=== PATIENT | female | born 1965 | race African-American/Black ===

== ENCOUNTER 2017-10-26 07:13 | Emergency (ER) | payer MEDICAID, OTHER ==
[~2017-10-26] VITALS: Ht 170.2 cm; Wt 101.0 kg
[~2017-10-26 07:13] MED LIST: ALBU6.7H INH; AMLO5TAB2 PO; LOSA100T6 PO; METO25TA35 PO; OMEP20TA62 PO; ONDA4TAB7 PO; OXYC5TAB3 PO; UNKNOWN BP MED PO; [UNRECOGNIZED DRUG - REMARK] PO
[2017-10-26] MEDS ORDERED: ONDANSETRON 2MG/ML, 2ML ONE (07:44)
[2017-10-26] MEDS ORDERED: FAMOTIDINE 20 MG/2 ML ONE (07:44)
[2017-10-26 07:55] LABS: BASOPHILS # (AUTO) 0.06 x10^3/uL (0-0.1); BASOPHILS % (AUTO) 1 % (0-1); EOSINOPHILS # (AUTO) 0.05 x10^3/uL (0-0.4); EOSINOPHILS % (AUTO) 0 % (1-7); LYMPHOCYTES # (AUTO) 1.18 x10^3/uL (1-3.4); LYMPHOCYTES % (AUTO) 10 % (22-44); MD NO; MEAN CORPUSCULAR HEMOGLOBIN 28.7 pg (27.0-34.8); MEAN CORPUSCULAR HGB CONC 34.2 g/dL (32.4-35.8); MONOCYTES # (AUTO) 0.91 x10^3/uL (0.2-0.8); MONOCYTES % (AUTO) 8 % (2-9); NEUTROPHILS # (AUTO) 9.14 x10^3/uL (1.8-6.8); NEUTROPHILS % (AUTO) 81 % (42-75); PLATELET COUNT 260 x10^3/uL (130-400); RED BLOOD COUNT 5.45 x10^6/uL (3.82-5.3); RED CELL DISTRIBUTION WIDTH 13.3 % (9.6-15.2)
[2017-10-26 07:57] LABS: MICROSCOPIC AUTO
[2017-10-26 07:58] LABS: CULTURE INDICATED? YES
[2017-10-26] MEDS ORDERED: ACETAMINOPHEN 500 MG TABLET PO ONE (08:00)
[2017-10-26] MEDS ORDERED: ONDANSETRON 2MG/ML, 2ML IVPush ONE (08:00)
[2017-10-26] MEDS ORDERED: SODIUM CHLORIDE 0.9% 1,000ML IVBOLUS ONE (08:00)
[2017-10-26] MEDS ORDERED: FAMOTIDINE 20 MG/2 ML IVP ONE (08:00)
[2017-10-26] MEDS ORDERED: ACETAMINOPHEN 500 MG TABLET ONE (08:01)
[2017-10-26 08:08] LABS: ALANINE AMINOTRANSFERASE 34 U/L (12-78); ALBUMIN 3.5 g/dL (3.4-5.0); ANION GAP 9 mmol/L (5-15); CHLORIDE 106 mmol/L (98-107); CREATININE 0.74 mg/dL (0.55-1.02)
[2017-10-26 08:10] LABS: ALKALINE PHOSPHATASE 160 U/L (45-117); BILIRUBIN,TOTAL 0.5 mg/dL (0.2-1.0); TOTAL PROTEIN 8.7 g/dL (6.4-8.2)
[2017-10-26] MEDS ORDERED: MORPHINE SULFATE 4 MG/ML, 1ML ONE (09:22)
[2017-10-26] MEDS ORDERED: MORPHINE SULFATE 4 MG/ML, 1ML IVPush PRN (09:30)
[2017-10-26 09:55] VITALS: BP 161/88
== END 2017-10-26 09:57 | disposition home or self-care (01) ==
LOC: ED 09:21
DX: N30.00 Acute cystitis without hematuria (principal); B34.9 Viral infection, unspecified; I10 Essential (primary) hypertension; Z90.49 Acquired absence of other specified parts of digestive tract; Z90.710 Acquired absence of both cervix and uterus; F17.210 Nicotine dependence, cigarettes, uncomplicated
CPT/HCPCS: 36415; 80053; 81001; 85025; 87077; 87086; 87147; 96361; 96374; 96375; 99284; J2405; J7030; 87186; S0028

== ENCOUNTER 2019-10-16 04:16 | Emergency (ER) | payer MEDICAID ==
[~2019-10-16] VITALS: Ht 167.6 cm; Wt 88.4 kg
[~2019-10-16 04:16] MED LIST changes: -ALBU6.7H INH; +ALBU6.7H8 INH; +AMLO-150 PO; -AMLO5TAB2 PO; +LOSA100T14 PO; -LOSA100T6 PO
[2019-10-16] MEDS ORDERED: FAMOTIDINE 20 MG/2 ML ONE (04:42)
[2019-10-16] MEDS ORDERED: ONDANSETRON 2MG/ML, 2ML ONE (04:42)
[2019-10-16] MEDS ORDERED: DICYCLOMINE 10 MG/ML, 2ML ONE (04:42)
[2019-10-16] MEDS ORDERED: ONDANSETRON 2MG/ML, 2ML IVPush ONE (05:00)
[2019-10-16] MEDS ORDERED: SODIUM CHLORIDE 0.9% 1,000ML IVBOLUS ONE (05:00)
[2019-10-16] MEDS ORDERED: SODIUM CHLORIDE FLUSH 10ML SYR IVF ONE (05:00)
[2019-10-16] MEDS ORDERED: FAMOTIDINE 20 MG/2 ML IV ONE (05:00)
[2019-10-16] MEDS ORDERED: DICYCLOMINE 10 MG/ML, 2ML IM ONE (05:00)
--- NOTE | 2019-10-16 05:10 | NUR ---
Patient experienced epigastric pain last night after work. She was able to go to sleep for a couple hours but then the pain woke her up. Pain does not radiate. She states it "just hurts" but cannot describe it otherwise. Patient is nauseous and vomited 3x [employer]. Medication administered per dec.
[2019-10-16 05:23] LABS: MICROSCOPIC AUTO
[2019-10-16 05:25] LABS: CULTURE INDICATED? YES
[2019-10-16 05:42] LABS: CHLORIDE 110 mmol/L (98-107)
--- NOTE | 2019-10-16 05:44 | NUR ---
Patient still c/o 8/10 epigastric pain. Patient is still nauseous.
[2019-10-16 05:47] LABS: ALANINE AMINOTRANSFERASE 26 U/L (12-78); ALBUMIN 3.7 g/dL (3.4-5.0); ALKALINE PHOSPHATASE 75 U/L (45-117); ANION GAP 8 mmol/L (5-15); BILIRUBIN,TOTAL 0.3 mg/dL (0.2-1.0); CALCIUM 10.1 mg/dL (8.5-10.1); CREATININE 0.78 mg/dL (0.55-1.02); TOTAL PROTEIN 7.6 g/dL (6.4-8.2)
[2019-10-16] MEDS ORDERED: MAALOX/HYOSCYAMINE/LIDOCAINE 45 ML BTL ONE (05:53)
[2019-10-16] MEDS ORDERED: METOCLOPRAMIDE 5 MG/ML, 2ML ONE (05:53)
[2019-10-16] MEDS ORDERED: METOCLOPRAMIDE 5 MG/ML, 2ML IVPush ONE (06:00)
[2019-10-16] MEDS ORDERED: MAALOX/HYOSCYAMINE/LIDOCAINE 45 ML BTL PO ONE (06:00)
[2019-10-16 06:06] LABS: ACETONE, SERUM Negative (Negative)
--- NOTE | 2019-10-16 06:17 | NUR ---
After patient agreed to a GI cocktail, she then decided she did not want it because she's had it before and "it tastes bad." GI cocktail not administered.
[2019-10-16 06:31] LABS: BASOPHILS # (AUTO) 0.04 x10^3/uL (0-0.1); BASOPHILS % (AUTO) 1 % (0-1); EOSINOPHILS # (AUTO) 0.16 x10^3/uL (0-0.4); EOSINOPHILS % (AUTO) 2 % (1-7); LYMPHOCYTES # (AUTO) 1.85 x10^3/uL (1-3.4); LYMPHOCYTES % (AUTO) 24 % (22-44); MD NO; MEAN CORPUSCULAR HEMOGLOBIN 28.7 pg (27.0-34.8); MEAN PLATELET VOLUME 10.1 fL (7.4-10.4); MONOCYTES # (AUTO) 0.52 x10^3/uL (0.2-0.8); MONOCYTES % (AUTO) 7 % (2-9); NEUTROPHILS # (AUTO) 5.23 x10^3/uL (1.8-6.8); NEUTROPHILS % (AUTO) 67 % (42-75); PLATELET COUNT 246 x10^3/uL (130-400); RED BLOOD COUNT 4.67 x10^6/uL (3.82-5.3); RED CELL DISTRIBUTION WIDTH 13.6 % (9.6-15.2)
[2019-10-16] MEDS ORDERED: MORPHINE SULFATE 4 MG/ML, 1ML ONE (06:38)
[2019-10-16] MEDS ORDERED: PROMETHAZINE 25 MG/ML, 1ML ONE (06:38)
[2019-10-16] MEDS ORDERED: PROMETHAZINE 25 MG/ML, 1ML IM ONE (07:00)
[2019-10-16] MEDS ORDERED: MORPHINE SULFATE 4 MG/ML, 1ML IVPush PRN (07:00)
--- NOTE | 2019-10-16 07:10 | NUR ---
RECEIVED REPORT FROM JOSH. PT RESTING IN BED, PT REPORTS IMPROVEMENT IN PAIN AND NAUSEA. PT UP FOR RECHECK ALL RESULTS ARE BACK.
[2019-10-16 08:00] VITALS: BP 127/84
== END 2019-10-16 08:07 | disposition home or self-care (01) ==
LOC: ED 05:05
DX: N30.00 Acute cystitis without hematuria (principal); E87.6 Hypokalemia; I10 Essential (primary) hypertension; E11.9 Type 2 diabetes mellitus without complications; R11.2 Nausea with vomiting, unspecified; Z90.710 Acquired absence of both cervix and uterus; Z98.890 Other specified postprocedural states
CPT/HCPCS: 36415; 74021; 80053; 81001; 82010; 82800; 83690; 85025; 87086; 93005; 96361; 96372; 96374; 96375; 99284; J0500; J2270; J2405; J2550; J2765; J3490; J7030

== ENCOUNTER 2019-10-30 03:17 | Emergency (ER) | payer MEDICAID ==
[~2019-10-30] VITALS: Ht 167.6 cm; Wt 88.5 kg
--- NOTE | 2019-10-30 03:34 | NUR ---
Patient ambulated steadily into room, changed into hospital gown and laying on side. Provider to bedside for assessment. Awaiting orders.
[2019-10-30 03:55] LABS: BASOPHILS # (AUTO) 0.03 x10^3/uL (0-0.1); BASOPHILS % (AUTO) 0 % (0-1); EOSINOPHILS # (AUTO) 0.17 x10^3/uL (0-0.4); EOSINOPHILS % (AUTO) 2 % (1-7); LYMPHOCYTES # (AUTO) 1.85 x10^3/uL (1-3.4); LYMPHOCYTES % (AUTO) 19 % (22-44); MD NO; MEAN CORPUSCULAR HEMOGLOBIN 28.5 pg (27.0-34.8); MEAN CORPUSCULAR HGB CONC 33.4 g/dL (32.4-35.8); MEAN CORPUSCULAR VOLUME 85.4 fL (80-100); MEAN PLATELET VOLUME 9.3 fL (7.4-10.4); MONOCYTES # (AUTO) 0.65 x10^3/uL (0.2-0.8); MONOCYTES % (AUTO) 7 % (2-9); NEUTROPHILS # (AUTO) 7.15 x10^3/uL (1.8-6.8); NEUTROPHILS % (AUTO) 73 % (42-75); PLATELET COUNT 333 x10^3/uL (130-400); RED BLOOD COUNT 4.76 x10^6/uL (3.82-5.3); RED CELL DISTRIBUTION WIDTH 13.4 % (9.6-15.2)
[2019-10-30 04:00] LABS: MICROSCOPIC AUTO
[2019-10-30] MEDS ORDERED: KETOROLAC 30 MG/1 ML IVPush ONE (04:00)
[2019-10-30] MEDS ORDERED: SODIUM CHLORIDE FLUSH 10ML SYR IVF ONE (04:00)
[2019-10-30] MEDS ORDERED: SODIUM CHLORIDE 0.9% 1,000ML IVBOLUS ONE (04:00)
[2019-10-30] MEDS ORDERED: ONDANSETRON 2MG/ML, 2ML IVPush ONE (04:00)
[2019-10-30 04:01] LABS: CULTURE INDICATED? YES
[2019-10-30] MEDS ORDERED: KETOROLAC 30 MG/1 ML ONE (04:02)
[2019-10-30] MEDS ORDERED: ONDANSETRON 2MG/ML, 2ML ONE (04:02)
[2019-10-30 04:05] LABS: ALANINE AMINOTRANSFERASE 19 U/L (12-78); ALBUMIN 3.7 g/dL (3.4-5.0); ANION GAP 9 mmol/L (5-15); CALCIUM 9.9 mg/dL (8.5-10.1); CHLORIDE 108 mmol/L (98-107); CREATININE 0.62 mg/dL (0.55-1.02)
[2019-10-30 04:07] LABS: ALKALINE PHOSPHATASE 84 U/L (45-117); BILIRUBIN,TOTAL 0.3 mg/dL (0.2-1.0); TOTAL PROTEIN 7.8 g/dL (6.4-8.2)
[2019-10-30] MEDS ORDERED: PROCHLORPERAZINE 5 MG/ML, 2ML ONE (05:12)
--- NOTE | 2019-10-30 05:27 | NUR ---
RN to bedside, patient resting comfortably. Administered additional antinausea medications per provider order. Vital signs updated, improved (see vital signs flowsheet.) Awaiting response to antinausea medication
[2019-10-30] MEDS ORDERED: PROCHLORPERAZINE 5 MG/ML, 2ML IVPush ONE (05:30)
[2019-10-30 06:11] VITALS: BP 135/86
== END 2019-10-30 06:22 | disposition home or self-care (01) ==
LOC: ED 04:44
DX: R10.13 Epigastric pain (principal); R11.2 Nausea with vomiting, unspecified; F17.200 Nicotine dependence, unspecified, uncomplicated; I10 Essential (primary) hypertension; E11.9 Type 2 diabetes mellitus without complications; Z90.49 Acquired absence of other specified parts of digestive tract; Z90.710 Acquired absence of both cervix and uterus
CPT/HCPCS: 36415; 80053; 81001; 83690; 85025; 87086; 96361; 96374; 96375; 99283; J0780; J1885; J2405; J7030

== ENCOUNTER 2020-01-15 15:32 | Emergency (ER) | payer MEDICAID ==
[~2020-01-15] VITALS: Ht 175.3 cm; Wt 87.1 kg
[2020-01-15 15:36] VITALS: BP 150/101
[2020-01-15] MEDS ORDERED: METF500T17 PO (15:49)
[2020-01-15] MEDS ORDERED: KETOROLAC 30 MG/1 ML ONE (16:17)
[2020-01-15] MEDS ORDERED: DIAZEPAM 5 MG TABLET ONE (16:17)
[2020-01-15] MEDS ORDERED: DIAZEPAM 5 MG TABLET PO ONE (16:30)
[2020-01-15] MEDS ORDERED: KETOROLAC 30 MG/1 ML IM ONE (16:30)
--- NOTE | 2020-01-15 16:58 | NUR ---
PT MEDICATED PER EMAR.
[2020-01-15] MEDS ORDERED: ONDANSETRON ODT 4 MG PO ONE (18:00)
[2020-01-15] MEDS ORDERED: OXYcodone/APAP 5/325MG TABLET PO ONE (18:00)
--- NOTE | 2020-01-15 18:15 | NUR ---
PT DECLINED MEDICATIONS (ZOFRAN AND PERCOCET).
== END 2020-01-15 18:09 | disposition home or self-care (01) ==
LOC: ED 16:04
DX: M75.91 Shoulder lesion, unspecified, right shoulder (principal); M25.511 Pain in right shoulder; I10 Essential (primary) hypertension; E11.9 Type 2 diabetes mellitus without complications
CPT/HCPCS: 73030; 93005; 96372; 99283; J1885

== ENCOUNTER 2021-06-10 23:48 | Emergency (ER) | payer MEDICAID ==
[~2021-06-10] VITALS: Ht 167.6 cm; Wt 93.5 kg
[~2021-06-10 23:48] MED LIST changes: +METF500T17 PO; -OXYC5TAB3 PO; +OXYC5TAB98 PO
--- NOTE | 2021-06-10 23:58 | NUR ---
EKG DONE IN TRIAGE.
[2021-06-11 00:22] LABS: BASOPHILS % (AUTO) 1 % (0-1); EOSINOPHILS % (AUTO) 1 % (1-7); LYMPHOCYTES % (AUTO) 25 % (22-44); MEAN CORPUSCULAR HEMOGLOBIN 27.7 pg (27.0-34.8); MEAN CORPUSCULAR HGB CONC 33.2 g/dL (32.4-35.8); MEAN PLATELET VOLUME 8.7 fL (7.4-10.4); MONOCYTES % (AUTO) 6 % (2-9); NEUTROPHILS % (AUTO) 68 % (42-75); PLATELET COUNT 308 x10^3/uL (130-400); RED BLOOD COUNT 4.66 x10^6/uL (3.82-5.3); RED CELL DISTRIBUTION WIDTH 13.6 % (9.6-15.2)
[2021-06-11 00:35] LABS: ALANINE AMINOTRANSFERASE 25 U/L (12-78); ALBUMIN 3.2 g/dL (3.4-5.0); ANION GAP 8 mmol/L (5-15); CALCIUM 9.3 mg/dL (8.5-10.1); CHLORIDE 107 mmol/L (98-107); CREATININE 0.49 mg/dL (0.55-1.02)
[2021-06-11 00:39] LABS: ALKALINE PHOSPHATASE 116 U/L (45-117); BILIRUBIN,TOTAL 0.2 mg/dL (0.2-1.0); TOTAL PROTEIN 7.7 g/dL (6.4-8.2); TROPONIN I 0.038 ng/mL (0.000-0.045)
--- NOTE | 2021-06-11 02:49 | NUR ---
PT PRESENTS TO THE ER FOR ABDOMINAL PAIN, N/V SINCE LAST NIGHT AT 1900
[2021-06-11] MEDS ORDERED: FAMOTIDINE 20 MG/2 ML ONE (03:22)
[2021-06-11] MEDS ORDERED: MAALOX/HYOSCYAMINE/LIDOCAINE 45 ML BTL ONE (03:22)
[2021-06-11] MEDS ORDERED: ONDANSETRON 2MG/ML, 2ML ONE ×2 (03:22→04:46)
[2021-06-11] MEDS ORDERED: SODIUM CHLORIDE 0.9% 1,000ML IVBOLUS ONE (03:30)
[2021-06-11] MEDS ORDERED: SODIUM CHLORIDE FLUSH 10ML SYR IVF ONE (03:30)
[2021-06-11] MEDS ORDERED: FAMOTIDINE 20 MG/2 ML IVPush ONE (03:30)
[2021-06-11] MEDS ORDERED: ONDANSETRON 2MG/ML, 2ML IVPush ONE ×2 (03:30→05:00)
[2021-06-11] MEDS ORDERED: MAALOX/HYOSCYAMINE/LIDOCAINE 45 ML BTL PO ONE (03:30)
[2021-06-11] MEDS ORDERED: MORPHINE SULFATE 4 MG/ML, 1ML ONE (04:11)
[2021-06-11] MEDS ORDERED: MORPHINE SULFATE 4 MG/ML, 1ML IVPush PRN (04:30)
[2021-06-11] MEDS ORDERED: POTASSIUM CHLORIDE 20 MEQ TAB.ER.PRT PO ONE (04:30)
--- NOTE | 2021-06-11 04:37 | NUR ---
David burnette in [facility] - 06/11/21 at 0442 by [email or web address] PT PUT BACK ON NONREBREATHER, PT REFUSED BIPAP AND CPAP
[2021-06-11] MEDS ORDERED: POTASSIUM CHLORIDE 20 MEQ TAB.ER.PRT ONE (04:45)
[2021-06-11 05:05] VITALS: BP 150/80
== END 2021-06-11 05:07 | disposition home or self-care (01) ==
LOC: ED 23:59
DX: R10.13 Epigastric pain (principal); R11.2 Nausea with vomiting, unspecified; R05 Cough; R06.02 Shortness of breath; I10 Essential (primary) hypertension; E11.9 Type 2 diabetes mellitus without complications; Z90.49 Acquired absence of other specified parts of digestive tract
CPT/HCPCS: 36415; 71045; 80053; 83690; 84484; 85025; 93005; 96361; 96374; 96375; 96376; 99285; J2270; J2405; J7030

== ENCOUNTER 2021-06-11 17:06 | Emergency (ER) | payer MEDICAID ==
[~2021-06-11] VITALS: Ht 167.6 cm; Wt 90.0 kg
--- NOTE | 2021-06-11 18:15 | NUR ---
nurse discharge: Pt ambulatory to room from lobby at this time.
--- NOTE | 2021-06-11 18:19 | NUR ---
THIS IS A 55 YEAR OLD FEMALE WHO C/O OF C/O ABD PAIN, VOMITTING. SEEN HERE FOR SAME LAST NIGHT
--- NOTE | 2021-06-11 18:46 | NUR ---
REPORT TO CHICO HUMPHREYS, PLAN OF CARE DISCUSSED
[2021-06-11] MEDS ORDERED: PROMETHAZINE 25 MG/ML, 1ML ONE (18:51)
[2021-06-11 18:57] LABS: BASOPHILS % (AUTO) 1 % (0-1); EOSINOPHILS % (AUTO) 0 % (1-7); LYMPHOCYTES % (AUTO) 15 % (22-44); MEAN CORPUSCULAR HEMOGLOBIN 28.2 pg (27.0-34.8); MEAN PLATELET VOLUME 8.8 fL (7.4-10.4); MONOCYTES % (AUTO) 7 % (2-9); NEUTROPHILS % (AUTO) 78 % (42-75); PLATELET COUNT 324 x10^3/uL (130-400); RED BLOOD COUNT 4.85 x10^6/uL (3.82-5.3); RED CELL DISTRIBUTION WIDTH 13.9 % (9.6-15.2)
--- NOTE | 2021-06-11 18:57 | NUR ---
PT MEDICATED PER EMAR. PT STATES UNABLE TO URINATE AT THIS TIME.
[2021-06-11] MEDS ORDERED: PROMETHAZINE 25 MG/ML, 1ML IM ONE (19:00)
[2021-06-11 19:02] LABS: ALANINE AMINOTRANSFERASE 25 U/L (12-78); ALBUMIN 3.5 g/dL (3.4-5.0); ANION GAP 8 mmol/L (5-15); CALCIUM 9.8 mg/dL (8.5-10.1); CHLORIDE 111 mmol/L (98-107)
[2021-06-11] MEDS ORDERED: MORPHINE SULFATE 4 MG/ML, 1ML ONE ×2 (19:02→20:12)
[2021-06-11 19:04] LABS: ALKALINE PHOSPHATASE 120 U/L (45-117); BILIRUBIN,TOTAL 0.3 mg/dL (0.2-1.0); TOTAL PROTEIN 8.3 g/dL (6.4-8.2)
[2021-06-11] MEDS: MORPHINE SULFATE 4 MG/ML, 1ML IVPush PRN ×2 (19:10→20:26)
[2021-06-11] MEDS ORDERED: SODIUM CHLORIDE FLUSH 10ML SYR IVF ONE (19:30)
[2021-06-11] MEDS ORDERED: OMNIPAQUE 350 MG/ML, 100ML BOTTLE ONE (19:30)
[2021-06-11] MEDS ORDERED: LACTATED RINGERS 1,000 ML IVBOLUS ONE (19:30)
[2021-06-11] MEDS ORDERED: METRONIDAZOLE PMX 500MG/100ML 100 ML ONE (20:09)
[2021-06-11] MEDS ORDERED: ONDANSETRON 2MG/ML, 2ML ONE (20:12)
--- NOTE | 2021-06-11 20:15 | NUR ---
per pharmacy. unasyn is compatable with LR
--- NOTE | 2021-06-11 20:20 | NUR ---
abx hung, no bc needed. pt states feeling pain and nausea now, medicated per emar, erp aware
[2021-06-11] MEDS ORDERED: ONDANSETRON 2MG/ML, 2ML IVPush ONE (20:30)
[2021-06-11] MEDS ORDERED: METRONIDAZOLE PMX 500MG/100ML 100 ML IV ONE (20:30)
[2021-06-11] MEDS ORDERED: AMPICILLIN/SULBACTAM 3 GM in SODIUM CHLORIDE 0.9% 100 ML IV ONE (20:30)
--- NOTE | 2021-06-11 20:43 | NUR ---
pt sleeping in gurney, abx and LR still running. pt to recieve 1 more iv abx and then d/c. pt agreeable with plan
[2021-06-11 21:50] VITALS: BP 161/79
== END 2021-06-11 22:33 | disposition home or self-care (01) ==
LOC: ED 20:54
DX: A09 Infectious gastroenteritis and colitis, unspecified (principal); R11.2 Nausea with vomiting, unspecified; F17.210 Nicotine dependence, cigarettes, uncomplicated; Z90.49 Acquired absence of other specified parts of digestive tract; Z90.710 Acquired absence of both cervix and uterus
CPT/HCPCS: 36415; 74177; 80053; 83690; 85025; 96361; 96365; 96372; 96375; 96376; 99285; J0295; J2270; J2405; J2550; J7120; Q9967

== ENCOUNTER 2021-06-12 01:46 | Inpatient (IN) | payer MEDICAID ==
[~2021-06-12] VITALS: Ht 167.6 cm; Wt 95.9 kg
--- NOTE | 2021-06-12 01:56 | NUR ---
PT PRESENTS TO ER FOR ABDOMINAL PAIN ASSOCIATED WITH N/V, PT STATES, "I CANT GET COMFORTABLE", PT SEEN EARLIER TODAY AND DISCHARGED AT 2300, PT STATES THE PHARMACY CLOSED SO SHE COULDNT GET HER SCRIPTS, PT STATES SHE TOOK A [facility] AND STATES THAT IT DID NOT WORK, PT STATES SHE WAS NOT AWARE THAT SHE COULD GO TO DIFFERENT PHARMACIES TO GET SCRIPTS FILLED, THIS RN STATED THAT SHE COULD GO TO ANY PHARMACY AND IT WILL NOT AFFECT HER MEDICAL RECORD OR HAVE ANY NEGATIVE IMPLICATIONS ON HER
--- NOTE | 2021-06-12 02:12 | NUR ---
MD AT BEDSIDE TO DISCUSS POC
[2021-06-12] MEDS ORDERED: MAALOX/HYOSCYAMINE/LIDOCAINE 45 ML BTL ONE (02:23)
[2021-06-12] MEDS ORDERED: MAALOX/HYOSCYAMINE/LIDOCAINE 45 ML BTL PO ONE (02:30)
--- NOTE | 2021-06-12 02:54 | NUR ---
PT LAYING IN BED, A/OX4, PT LAYING WITH HER ARMS OVER HER HEAD, WHEN THIS RN WALKED IN THE ROOM PT HAD HER EYES CLOSED AND APPEARED TO BE VERY RELAXED, PT OPENED EYES AND SAW THIS RN AND STATED SHE STILL FEELS NAUSEOUS, NAD AT THIS TIME
[2021-06-12] MEDS ORDERED: MORPHINE SULFATE 4 MG/ML, 1ML IVPush PRN (03:30)
[2021-06-12] MEDS ORDERED: ONDANSETRON 2MG/ML, 2ML IVPush ONE (03:30)
[2021-06-12] MEDS ORDERED: SODIUM CHLORIDE 0.9% 1,000ML IVBOLUS ONE (03:30)
--- NOTE | 2021-06-12 04:21 | NUR ---
TASK RN: PIV STARTED, PT MEDICATED PER EMAR. VSS, ELISEN.
[2021-06-12] MEDS ORDERED: MELATONIN 5 MG TABLET PO PRN (04:30)
[2021-06-12] MEDS ORDERED: POLYETHYLENE GLYCOL 17 GM PACKET PO PRN (04:30)
[2021-06-12] MEDS ORDERED: DEXTROSE 50%, 50ML SYRINGE IVPush PRN (04:30)
[2021-06-12] MEDS ORDERED: DEXTROSE 4 GM TAB.CHEW PO PRN (04:30)
[2021-06-12] MEDS ORDERED: ONDANSETRON 2MG/ML, 2ML IVPush PRN (04:30)
[2021-06-12] MEDS ORDERED: LABETALOL 5MG/ML, 20ML IVPush PRN (04:30)
[2021-06-12] MEDS ORDERED: ACETAMINOPHEN 325 MG TABLET PO PRN (04:30)
[2021-06-12] MEDS ORDERED: GLUCAGON 1 MG IM PRN (04:30)
[2021-06-12 04:35] VITALS: BP 165/89
[2021-06-12] MEDS: ENOXAPARIN 40 MG/0.4 ML SQ SCH (04:54)
[2021-06-12] MEDS: CIPROFLOXACIN/PMX 400MG/200ML 200 ML IV SCH ×2 (05:09→16:51)
[2021-06-12] MEDS: METRONIDAZOLE PMX 500MG/100ML 100 ML IV SCH ×3 (06:13→21:33)
[2021-06-12 07:11] VITALS: BP 145/82
[2021-06-12 08:08] LABS: ANION GAP 6 mmol/L (5-15); BASOPHILS % (AUTO) 1 % (0-1); CALCIUM 8.8 mg/dL (8.5-10.1); CHLORIDE 110 mmol/L (98-107); EOSINOPHILS % (AUTO) 0 % (1-7); LYMPHOCYTES % (AUTO) 26 % (22-44); MEAN CORPUSCULAR HEMOGLOBIN 28.3 pg (27.0-34.8); MEAN CORPUSCULAR HGB CONC 33.5 g/dL (32.4-35.8); MEAN PLATELET VOLUME 8.8 fL (7.4-10.4); MONOCYTES % (AUTO) 9 % (2-9); NEUTROPHILS % (AUTO) 65 % (42-75); PLATELET COUNT 286 x10^3/uL (130-400); RED BLOOD COUNT 4.41 x10^6/uL (3.82-5.3)
[2021-06-12] MEDS: LOSARTAN 100 MG TAB PO SCH ×2 (08:13→08:38)
[2021-06-12] MEDS: OXYcodone IR 5MG TABLET PO PRN ×2 (08:14→19:20)
[2021-06-12] MEDS: ONDANSETRON 2MG/ML, 2ML IVPush SCH ×3 (08:20→20:20)
[2021-06-12] MEDS: SODIUM CHLORIDE FLUSH 10ML SYR IVF SCH ×2 (08:20→19:25)
[2021-06-12] MEDS: HYDROmorphone 2 MG/ML, 1ML IVPush PRN ×4 (08:20→20:56)
[2021-06-12 08:21] LABS: CREATININE 0.58 mg/dL (0.55-1.02)
[2021-06-12 08:25] LABS: ALANINE AMINOTRANSFERASE 18 U/L (12-78); ALBUMIN 3.6 g/dL (3.4-5.0); ALKALINE PHOSPHATASE 105 U/L (45-117); BILIRUBIN,TOTAL 0.3 mg/dL (0.2-1.0); TOTAL PROTEIN 7.3 g/dL (6.4-8.2)
[2021-06-12 08:27] LABS: BILIRUBIN, DIRECT < 0.1 mg/dL (0.1-0.2); BILIRUBIN,INDIRECT 0.2 mg/dL (0.0-2.0)
[2021-06-12] MEDS: LACTATED RINGERS 1,000 ML IV SCH (08:38)
[2021-06-12] MEDS: INSULIN LISPRO 100 UNITS/ML, PEN SQ-INSULIN SCH ×4 (08:38→20:29)
[2021-06-12] MEDS ORDERED: FAMOTIDINE 20 MG/2 ML IVPush SCH (09:00)
[2021-06-12] MEDS ORDERED: POTASSIUM CHLORIDE 20 MEQ TAB.ER.PRT PO ONE (10:30)
[2021-06-12] MEDS ORDERED: POTASSIUM CHLORIDE 40 MEQ in SODIUM CHLORIDE 0.9% 500 ML IV ONE (11:00)
[2021-06-12] MEDS: PANTOPRAZOLE 40 MG IV IVPush SCH ×2 (11:24→22:21)
[2021-06-12 12:17] VITALS: BP 159/89
[2021-06-12] MEDS: METOCLOPRAMIDE 5 MG/ML, 2ML IVPush PRN (16:43)
[2021-06-12 19:16] VITALS: BP 160/93
[2021-06-13] MEDS: LACTATED RINGERS 1,000 ML IV SCH (00:30)
[2021-06-13 00:48] VITALS: BP 160/85
[2021-06-13] MEDS: HYDROmorphone 2 MG/ML, 1ML IVPush PRN ×5 (00:52→16:14)
[2021-06-13] MEDS: METOCLOPRAMIDE 5 MG/ML, 2ML IVPush PRN ×2 (00:52→11:25)
[2021-06-13] MEDS: ONDANSETRON 2MG/ML, 2ML IVPush SCH ×4 (02:23→20:00)
[2021-06-13] MEDS: ENOXAPARIN 40 MG/0.4 ML SQ SCH (05:00)
[2021-06-13] MEDS: CIPROFLOXACIN/PMX 400MG/200ML 200 ML IV SCH ×2 (05:00→16:14)
[2021-06-13] MEDS: METRONIDAZOLE PMX 500MG/100ML 100 ML IV SCH ×3 (06:27→22:15)
[2021-06-13] MEDS ORDERED: hydrALAzine 20 MG/ML, 1ML IV PRN (06:30)
[2021-06-13 06:50] LABS: BASOPHILS % (AUTO) 1 % (0-1); EOSINOPHILS % (AUTO) 0 % (1-7); LYMPHOCYTES % (AUTO) 27 % (22-44); MEAN CORPUSCULAR HEMOGLOBIN 28.3 pg (27.0-34.8); MEAN CORPUSCULAR HGB CONC 32.9 g/dL (32.4-35.8); MEAN PLATELET VOLUME 8.6 fL (7.4-10.4); MONOCYTES % (AUTO) 8 % (2-9); NEUTROPHILS % (AUTO) 65 % (42-75); PLATELET COUNT 237 x10^3/uL (130-400); RED CELL DISTRIBUTION WIDTH 14.2 % (9.6-15.2)
[2021-06-13 07:02] LABS: ANION GAP 4 mmol/L (5-15); CALCIUM 8.8 mg/dL (8.5-10.1); CHLORIDE 112 mmol/L (98-107); CREATININE 0.61 mg/dL (0.55-1.02)
[2021-06-13] MEDS ORDERED: POTASSIUM CHLORIDE 20 MEQ TAB.ER.PRT PO ONE (08:00)
[2021-06-13] MEDS: INSULIN LISPRO 100 UNITS/ML, PEN SQ-INSULIN SCH ×4 (08:06→21:17)
[2021-06-13] MEDS: SODIUM CHLORIDE FLUSH 10ML SYR IVF SCH ×2 (08:08→21:00)
[2021-06-13] MEDS: LOSARTAN 100 MG TAB PO SCH (09:00)
[2021-06-13] MEDS: PANTOPRAZOLE 40 MG IV IVPush SCH ×2 (11:25→23:00)
[2021-06-13 13:27] VITALS: BP 172/84
[2021-06-13 16:19] VITALS: BP 157/89
[2021-06-13 19:54] VITALS: BP 160/78
[2021-06-13] MEDS ORDERED: HYDROmorphone 1 MG/ML, 1ML INJ IM PRN (23:30)
[2021-06-14] MEDS: ONDANSETRON ODT 4 MG PO PRN ×2 (00:17→08:18)
[2021-06-14] MEDS: HYDROmorphone 1 MG/ML, 1ML INJ SQ PRN ×2 (00:19→05:40)
[2021-06-14 01:27] VITALS: BP 150/74
[2021-06-14] MEDS: ONDANSETRON 2MG/ML, 2ML IVPush SCH ×4 (02:00→20:47)
[2021-06-14] MEDS: ENOXAPARIN 40 MG/0.4 ML SQ SCH ×2 (04:47→11:31)
[2021-06-14] MEDS: CIPROFLOXACIN/PMX 400MG/200ML 200 ML IV SCH ×2 (05:00→20:47)
[2021-06-14] MEDS: METRONIDAZOLE PMX 500MG/100ML 100 ML IV SCH ×3 (06:15→22:27)
[2021-06-14 06:53] VITALS: BP 148/80
[2021-06-14] MEDS: INSULIN LISPRO 100 UNITS/ML, PEN SQ-INSULIN SCH ×4 (07:00→21:00)
[2021-06-14] MEDS: LACTATED RINGERS 1,000 ML IV SCH ×2 (08:00→20:48)
[2021-06-14] MEDS: SODIUM CHLORIDE FLUSH 10ML SYR IVF SCH ×2 (08:18→20:47)
[2021-06-14] MEDS: LOSARTAN 100 MG TAB PO SCH (08:18)
[2021-06-14] MEDS: METOCLOPRAMIDE 5 MG/ML, 2ML IVPush PRN ×2 (10:35→18:02)
[2021-06-14] MEDS: HYDROmorphone 2 MG/ML, 1ML IVPush PRN ×4 (10:37→21:19)
[2021-06-14 11:22] LABS: ANION GAP 9 mmol/L (5-15); CALCIUM 9.2 mg/dL (8.5-10.1); CHLORIDE 108 mmol/L (98-107); CREATININE 0.59 mg/dL (0.55-1.02)
[2021-06-14] MEDS: PANTOPRAZOLE 40 MG IV IVPush SCH (11:31)
[2021-06-14] MEDS ORDERED: POTASSIUM CHLORIDE 40 MEQ in SODIUM CHLORIDE 0.9% 500 ML IV ONE (13:00)
[2021-06-14 13:12] VITALS: BP 126/75
[2021-06-14] MEDS ORDERED: MAGNESIUM SULFATE PMX 2GM/50ML 50 ML IV ONE (14:00)
[2021-06-14] MEDS: PANTOPRAZOLE 40MG TABLET PO SCH (16:26)
[2021-06-14 19:39] VITALS: BP 162/91
[2021-06-15] MEDS: HYDROmorphone 2 MG/ML, 1ML IVPush PRN ×5 (01:19→21:33)
[2021-06-15 01:21] VITALS: BP 137/79
[2021-06-15] MEDS: ONDANSETRON 2MG/ML, 2ML IVPush SCH ×4 (02:13→20:34)
[2021-06-15] MEDS: PANTOPRAZOLE 40MG TABLET PO SCH ×2 (05:06→16:42)
[2021-06-15 05:38] LABS: CHLORIDE 111 mmol/L (98-107)
[2021-06-15 05:42] LABS: ANION GAP 5 mmol/L (5-15); CALCIUM 8.6 mg/dL (8.5-10.1); CREATININE 0.49 mg/dL (0.55-1.02)
[2021-06-15] MEDS: METRONIDAZOLE PMX 500MG/100ML 100 ML IV SCH ×3 (06:06→21:56)
[2021-06-15] MEDS ORDERED: POTASSIUM CHLORIDE 20 MEQ TAB.ER.PRT PO ONE (06:30)
[2021-06-15] MEDS: INSULIN LISPRO 100 UNITS/ML, PEN SQ-INSULIN SCH ×4 (07:53→20:34)
[2021-06-15] MEDS: LOSARTAN 100 MG TAB PO SCH (07:54)
[2021-06-15] MEDS: SODIUM CHLORIDE FLUSH 10ML SYR IVF SCH ×2 (07:55→20:34)
[2021-06-15] MEDS: CIPROFLOXACIN/PMX 400MG/200ML 200 ML IV SCH (07:55)
[2021-06-15 08:28] VITALS: BP 126/73
[2021-06-15] MEDS: ENOXAPARIN 40 MG/0.4 ML SQ SCH (12:24)
[2021-06-15 13:44] VITALS: BP 150/82
[2021-06-15] MEDS: OXYcodone IR 5MG TABLET PO PRN (16:48)
[2021-06-15 18:23] VITALS: BP 134/76
[2021-06-15] MEDS: CIPROFLOXACIN 500 MG TABLET PO SCH (20:34)
[2021-06-16 00:50] VITALS: BP 144/80
[2021-06-16] MEDS: ONDANSETRON 2MG/ML, 2ML IVPush SCH ×4 (02:01→20:06)
[2021-06-16] MEDS: OXYcodone IR 5MG TABLET PO PRN (02:01)
[2021-06-16] MEDS: HYDROmorphone 2 MG/ML, 1ML IVPush PRN ×4 (03:31→23:49)
[2021-06-16 04:08] LABS: ANION GAP 4 mmol/L (5-15); CALCIUM 8.4 mg/dL (8.5-10.1); CHLORIDE 111 mmol/L (98-107); CREATININE 0.53 mg/dL (0.55-1.02)
[2021-06-16] MEDS: PANTOPRAZOLE 40MG TABLET PO SCH ×2 (06:13→16:55)
[2021-06-16] MEDS: METRONIDAZOLE PMX 500MG/100ML 100 ML IV SCH ×3 (06:13→22:00)
[2021-06-16 07:00] VITALS: BP 132/83
[2021-06-16] MEDS: INSULIN LISPRO 100 UNITS/ML, PEN SQ-INSULIN SCH ×4 (07:00→19:40)
[2021-06-16] MEDS: SODIUM CHLORIDE FLUSH 10ML SYR IVF SCH ×2 (07:41→20:06)
[2021-06-16] MEDS: CIPROFLOXACIN 500 MG TABLET PO SCH ×2 (07:41→20:06)
[2021-06-16] MEDS: LOSARTAN 100 MG TAB PO SCH (07:41)
[2021-06-16] MEDS ORDERED: LACTATED RINGERS 1,000 ML IV SCH (08:00)
[2021-06-16] MEDS: METOCLOPRAMIDE 5 MG/ML, 2ML IVPush PRN (11:13)
[2021-06-16] MEDS: ENOXAPARIN 40 MG/0.4 ML SQ SCH (11:14)
[2021-06-16] MEDS ORDERED: ZOLP12.56 PO (11:26)
[2021-06-16] MEDS ORDERED: ZOLPIDEM 10MG TABLET PO PRN (12:00)
[2021-06-16 12:55] VITALS: BP 166/92
[2021-06-16 20:00] VITALS: BP 138/77
[2021-06-17 01:54] VITALS: BP 154/84
[2021-06-17] MEDS: ONDANSETRON 2MG/ML, 2ML IVPush SCH ×3 (02:00→14:17)
[2021-06-17] MEDS: PANTOPRAZOLE 40MG TABLET PO SCH ×2 (05:51→16:12)
[2021-06-17] MEDS: HYDROmorphone 2 MG/ML, 1ML IVPush PRN ×4 (05:51→16:13)
[2021-06-17] MEDS: ONDANSETRON ODT 4 MG PO PRN (05:51)
[2021-06-17] MEDS: METRONIDAZOLE PMX 500MG/100ML 100 ML IV SCH ×2 (06:20→14:18)
[2021-06-17] MEDS: INSULIN LISPRO 100 UNITS/ML, PEN SQ-INSULIN SCH ×3 (07:41→16:29)
[2021-06-17] MEDS: CIPROFLOXACIN 500 MG TABLET PO SCH (08:07)
[2021-06-17] MEDS: SODIUM CHLORIDE FLUSH 10ML SYR IVF SCH (08:07)
[2021-06-17] MEDS: LOSARTAN 100 MG TAB PO SCH (08:07)
[2021-06-17 08:52] VITALS: BP 172/98
[2021-06-17] MEDS: ENOXAPARIN 40 MG/0.4 ML SQ SCH (12:04)
[2021-06-17] MEDS: METOCLOPRAMIDE 5 MG/ML, 2ML IVPush PRN (13:14)
[2021-06-17 15:31] VITALS: BP 170/102
[2021-06-17 17:59] VITALS: BP 156/92
== END 2021-06-17 18:24 | disposition home or self-care (01) | DRG 392 ==
LOC: ED 02:15 → EDIP 03:37 → 3N 04:24
PROVIDERS: ADMIT Internal Medicine; ATTEND Family Medicine
PROC: 02HV33Z Insertion of Infusion Device into Superior Vena Cava, Percutaneous Approach (ICD-10-PCS; principal; 2021-06-14)
PROC: B5181ZA Fluoroscopy of Superior Vena Cava using Low Osmolar Contrast, Guidance (ICD-10-PCS; 2021-06-14)
PROC: B548ZZA Ultrasonography of Superior Vena Cava, Guidance (ICD-10-PCS; 2021-06-14)
DX: A08.4 Viral intestinal infection, unspecified (principal); E78.5 Hyperlipidemia, unspecified; I10 Essential (primary) hypertension; E11.65 Type 2 diabetes mellitus with hyperglycemia; E66.01 Morbid (severe) obesity due to excess calories; E87.6 Hypokalemia; K31.84 Gastroparesis; E11.43 Type 2 diabetes mellitus with diabetic autonomic (poly)neuropathy; Z90.49 Acquired absence of other specified parts of digestive tract; Z90.710 Acquired absence of both cervix and uterus; Z80.3 Family history of malignant neoplasm of breast; Z68.32 Body mass index [BMI] 32.0-32.9, adult; Z79.899 Other long term (current) drug therapy
CPT/HCPCS: 36415; 36573; 74181; 80048; 80076; 82962; 82977; 83036; 83735; 84100; 84132; 84145; 85025; 87046; 87252; 87427; 89055; 96374; 96375; 99285; G0378; J0744; J1170; J1650; J2405; J3480; Q0162; C1751; C9113; J0360; J1815; J2270; J2765; J3475; J7030; J7040; J7120

== ENCOUNTER 2021-07-05 20:51 | Emergency (ER) | payer MEDICAID ==
[~2021-07-05] VITALS: Ht 170.2 cm; Wt 88.3 kg
[~2021-07-05 20:51] MED LIST changes: +ZOLP12.56 PO
[2021-07-05 21:21] VITALS: BP 146/86
== END 2021-07-05 22:16 | disposition left against medical advice (07) ==
LOC: ED 21:00
DX: R50.9 Fever, unspecified (principal); Z53.21 Procedure and treatment not carried out due to patient leaving prior to being seen by health care provider

== ENCOUNTER 2021-07-07 05:23 | Emergency (ER) | payer MEDICAID ==
[~2021-07-07] VITALS: Ht 167.6 cm; Wt 88.0 kg
--- NOTE | 2021-07-07 05:46 | NUR ---
PATIENT REPORTS RECENT ADMISSION FOR ABDOMINAL PAIN, STATES "THIS IS THE SAME PAIN, BUT THERE IS SOMETHING WRONG, I KNOW MY BODY" PATIENT PAIN IS 6/10. SHE STATES SHE TOOK IBUPROFEN 200MG LAST NIGHT 07/06/21 AT APPROX 2300 BUT VOMITED 30 MINUTES LATER SO SHE ISN'T SURE IF SHE KEPT IT DOWN. CURRENTLY HAS SOME NAUSEA BUT DOES NOT FEEL LIKE SHE WILL VOMIT. PATIENT FEELS LIKE SHE HAS BEEN HAVING A FEVER AT HOME, BUT HAS NOT CHECKED HER TEMPERATURE AT HOME.
[2021-07-07] MEDS ORDERED: ONDANSETRON 2MG/ML, 2ML IVPush ONE ×2 (06:30→08:00)
[2021-07-07] MEDS ORDERED: SODIUM CHLORIDE FLUSH 10ML SYR IVF ONE (06:30)
[2021-07-07] MEDS ORDERED: FAMOTIDINE 20 MG/2 ML IVPush ONE (06:30)
[2021-07-07] MEDS ORDERED: ONDANSETRON 2MG/ML, 2ML ONE (06:52)
[2021-07-07] MEDS ORDERED: FAMOTIDINE 20 MG/2 ML ONE (06:52)
[2021-07-07 07:42] LABS: BASOPHILS % (AUTO) 0 % (0-1); EOSINOPHILS % (AUTO) 1 % (1-7); LYMPHOCYTES % (AUTO) 21 % (22-44); MEAN CORPUSCULAR HEMOGLOBIN 28.3 pg (27.0-34.8); MEAN CORPUSCULAR HGB CONC 33.8 g/dL (32.4-35.8); MEAN PLATELET VOLUME 9.7 fL (7.4-10.4); MONOCYTES % (AUTO) 10 % (2-9); NEUTROPHILS % (AUTO) 68 % (42-75); PLATELET COUNT 306 x10^3/uL (130-400); RED BLOOD COUNT 5.16 x10^6/uL (3.82-5.3); RED CELL DISTRIBUTION WIDTH 14.2 % (9.6-15.2)
[2021-07-07 07:53] LABS: ALBUMIN 3.8 g/dL (3.4-5.0); ANION GAP 12 mmol/L (5-15); CALCIUM 10.1 mg/dL (8.5-10.1); CHLORIDE 104 mmol/L (98-107)
[2021-07-07 07:56] LABS: ALANINE AMINOTRANSFERASE 35 U/L (12-78); ALKALINE PHOSPHATASE 126 U/L (45-117); BILIRUBIN,TOTAL 0.4 mg/dL (0.2-1.0); TOTAL PROTEIN 8.3 g/dL (6.4-8.2)
[2021-07-07] MEDS ORDERED: MORPHINE SULFATE 4 MG/ML, 1ML IVPush PRN (08:00)
[2021-07-07] MEDS ORDERED: MORPHINE SULFATE 4 MG/ML, 1ML ONE (08:05)
[2021-07-07 08:42] VITALS: BP 118/75
--- NOTE | 2021-07-07 08:42 | NUR ---
PT MEDICATED PE MAR
[2021-07-07] MEDS ORDERED: OMNIPAQUE 350 MG/ML, 100ML BOTTLE ONE (09:15)
--- NOTE | 2021-07-07 09:37 | NUR ---
ASSUMED CARE FOR DISCHARGE ONLY. PT VERBALIZED UNDERSTANDING OF DISCHARGE INSTRUCTIONS AND EDUCATION. PT AMBULATED TO DISCHARGE DESK STEADILY.
== END 2021-07-07 09:39 | disposition home or self-care (01) ==
LOC: ED 05:30
DX: R10.84 Generalized abdominal pain (principal); R11.2 Nausea with vomiting, unspecified; R19.7 Diarrhea, unspecified; I10 Essential (primary) hypertension; E11.9 Type 2 diabetes mellitus without complications; E78.5 Hyperlipidemia, unspecified; Z90.49 Acquired absence of other specified parts of digestive tract
CPT/HCPCS: 36415; 74177; 80053; 83690; 85025; 96374; 96375; 99285; J2270; J2405; Q9967

== ENCOUNTER 2021-07-09 05:06 | Emergency (ER) | payer MEDICAID ==
[~2021-07-09] VITALS: Ht 167.6 cm; Wt 87.3 kg
[2021-07-09 13:06] VITALS: BP 118/77
== END 2021-07-09 13:22 | disposition home or self-care (01) ==
LOC: ED 05:15
DX: K29.00 Acute gastritis without bleeding (principal); R10.13 Epigastric pain; R11.2 Nausea with vomiting, unspecified; R19.7 Diarrhea, unspecified; R00.8 Other abnormalities of heart beat; I10 Essential (primary) hypertension; E11.9 Type 2 diabetes mellitus without complications
CPT/HCPCS: 36415; 80053; 83690; 84484; 85025; 93005; 96361; 96374; 96375; 96376; 99285; J0780; J1170; J2060; J2270; J2405; J7030

== ENCOUNTER 2021-07-10 08:23 | Emergency (ER) | payer MEDICAID ==
[~2021-07-10] VITALS: Ht 167.6 cm; Wt 88.3 kg
[2021-07-10] MEDS ORDERED: LORazepam 1MG TABLET ONE (08:50)
[2021-07-10] MEDS ORDERED: MAALOX/HYOSCYAMINE/LIDOCAINE 45 ML BTL ONE (08:51)
--- NOTE | 2021-07-10 08:57 | NUR ---
PT MEDICATED PER DEC. 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 RAIL UP. CALL LIGHT AND PERSONAL BELONGINGS WITHIN REACH.
[2021-07-10] MEDS ORDERED: LORazepam 1MG TABLET PO ONE (09:00)
[2021-07-10] MEDS ORDERED: MAALOX/HYOSCYAMINE/LIDOCAINE 45 ML BTL PO ONE (09:00)
--- NOTE | 2021-07-10 09:24 | NUR ---
MESSAGE LEFT FOR PROVIDER ABOUT PT STILL EXPERIENCING PAIN
[2021-07-10] MEDS ORDERED: PROMETHAZINE 25 MG/ML, 1ML IM ONE (09:30)
[2021-07-10] MEDS ORDERED: HYDROmorphone 1 MG/ML, 1ML INJ IM ONE (09:30)
[2021-07-10] MEDS ORDERED: PROMETHAZINE 25 MG/ML, 1ML ONE (09:38)
[2021-07-10 09:39] LABS: BASOPHILS % (AUTO) 1 % (0-1); EOSINOPHILS % (AUTO) 0 % (1-7); LYMPHOCYTES % (AUTO) 26 % (22-44); MEAN CORPUSCULAR HGB CONC 32.9 g/dL (32.4-35.8); MEAN PLATELET VOLUME 9.4 fL (7.4-10.4); MONOCYTES % (AUTO) 8 % (2-9); NEUTROPHILS % (AUTO) 64 % (42-75); PLATELET COUNT 259 x10^3/uL (130-400); RED BLOOD COUNT 4.87 x10^6/uL (3.82-5.3); RED CELL DISTRIBUTION WIDTH 14.1 % (9.6-15.2)
[2021-07-10] MEDS ORDERED: HYDROmorphone 2 MG/ML, 1ML ONE (09:39)
[2021-07-10 09:49] LABS: ALBUMIN 3.6 g/dL (3.4-5.0); ANION GAP 9 mmol/L (5-15); CHLORIDE 109 mmol/L (98-107)
[2021-07-10 09:55] LABS: ALANINE AMINOTRANSFERASE 29 U/L (12-78); ALKALINE PHOSPHATASE 110 U/L (45-117); BILIRUBIN,TOTAL 0.3 mg/dL (0.2-1.0); CREATININE 0.66 mg/dL (0.55-1.02); TOTAL PROTEIN 7.8 g/dL (6.4-8.2)
[2021-07-10 11:02] VITALS: BP 140/83
--- NOTE | 2021-07-10 11:23 | NUR ---
PT REC'VD DISCHARGE INSTRUCTIONS AND EDUCATION. PT HAD NO FURTHER QUESTIONS. PT AMBULATED TO DC AREA, STEADY GAIT.
== END 2021-07-10 11:25 | disposition home or self-care (01) ==
LOC: ED 08:49
DX: K29.00 Acute gastritis without bleeding (principal); E11.9 Type 2 diabetes mellitus without complications; I10 Essential (primary) hypertension; E78.5 Hyperlipidemia, unspecified; F17.200 Nicotine dependence, unspecified, uncomplicated; Z90.49 Acquired absence of other specified parts of digestive tract; Z90.710 Acquired absence of both cervix and uterus
CPT/HCPCS: 36415; 76700; 80053; 83690; 85025; 96372; 99284; J1170; J2550